=== PATIENT | female | born 1980 | race Caucasian/White ===

== ENCOUNTER → 2018-12-22 | Outpatient (CLI) | payer OTHER, MEDICAID, SELFPAY ==
[2018-07-21 16:08] VITALS: BMI 26.8
[2018-12-22 15:35] LABS: hCG Titer Quant., Serum 180 mIU/mL (1-3)
== END | disposition home or self-care (01) ==
PROVIDERS: Referring Provider Obstetrics & Gynecology; Visit Provider Obstetrics & Gynecology
DX: N91.2 Amenorrhea, unspecified (principal)
CPT/HCPCS: 36415; 84702

== ENCOUNTER → 2018-12-24 | Outpatient (CLI) | payer OTHER, MEDICAID, SELFPAY ==
[2018-07-21 16:08] VITALS: BMI 26.8
[2018-12-24 11:51] LABS: hCG Titer Quant., Serum 409 mIU/mL (1-3)
== END | disposition home or self-care (01) ==
LOC: LAB 11:03
PROVIDERS: Referring Provider Obstetrics & Gynecology; Visit Provider Obstetrics & Gynecology
DX: N91.2 Amenorrhea, unspecified (principal)
CPT/HCPCS: 36415; 84702

== ENCOUNTER → 2019-01-18 | Outpatient (CLI) | payer OTHER, SELFPAY ==
[2019-01-18 12:10] VITALS: BMI 26.8
[2019-01-18 13:39] LABS: Absolute Lymphocyte Count 1.77 X10^3/uL (0.83-4.51); Absolute Neutrophil Count 5.6 X10^3/uL (2.0-7.7); Basophil# 0.04 X10^3/uL; Basophil% 0.5 % (0-1); Eosinophil# 0.14 X10^3/uL; Eosinophils% 1.7 % (0-5); Hematocrit 37.5 % (37-47); Hemoglobin 12.6 g/dL (12.0-15.0); Lymphocyte # 1.77 X10^3/ul (4.0); Lymphocyte % 22.1 % (19-41); Mean Corp Hgb Conc 33.6 g/dL (32-36); Mean Corpuscular Hgb 30.3 pg (27.0-32.0); Mean Corpuscular Volume 90.1 fL (81-99); Mean Platelet Vol. 10.4 fl (6.2-12.0); Monocyte# 0.39 X10^3/uL; Monocyte% 4.9 % (0-10); NRBC Flagged by Analyzer 0 % (0-5); Neutrophil # 5.64 X10^3/uL (2.7-7.7); Neutrophil % 70.3 % (47-70); Platelet Count 212 K/mm3 (150-450); RBC Distribution Width CV 13.2 % (11.6-14.6); RBC Distribution Width SD 43.5 fl (35.1-43.9); Red Blood Count 4.16 M/mm3 (4.2-5.4)
[2019-01-18 14:00] LABS: Glucose Challenge Gest 1H 50g 162 mg/dL (70-140)
[2019-01-18 14:56] LABS: HIV - WCH Non-Reactive (Nonreactive); Rubella IgG > 500.0 IU/mL
[2019-01-18 20:16] LABS: Chlamydia Trachomatis by PCR Negative (Negative); Neisserai gonorrhoeae by PCR Negative (Negative); Probe Check PASS; Sample Adequacy Control PASS; Specimen Processing Control PASS
[2019-01-22 01:33] LABS: Rapid Plasmin Reagin (RPR) NONREACTIVE (NONREACTIVE)
[2019-01-26 14:00] LABS: HPV APTIMA, High Risk Positive (Negative)
== END | disposition home or self-care (01) ==
PROVIDERS: Referring Provider Nurse Practitioner Women's Health; Visit Provider Nurse Practitioner Women's Health
DX: O09.529 Supervision of elderly multigravida, unspecified trimester (principal); O09.299 Supervision of pregnancy with other poor reproductive or obstetric history, unspecified trimester; Z86.32 Personal history of gestational diabetes; Z12.4 Encounter for screening for malignant neoplasm of cervix; Z3A.00 Weeks of gestation of pregnancy not specified
CPT/HCPCS: 36415; 82950; 85025; 86592; 86703; 86762; 86850; 86900; 87086; 87491; 87591; 87624; 88175; G0145

== ENCOUNTER → 2019-02-03 | Outpatient (CLI) | payer OTHER, SELFPAY ==
[2019-01-18 12:10] VITALS: BMI 26.8
[2019-02-03 09:15] VITALS: BMI 28.1
[2019-02-03 11:28] LABS: Glucose GTT-Gestation. Fasting 83 mg/dL (<105)
[2019-02-03 12:00] LABS: Glucose GTT-Gestational 1 Hr 172 mg/dL (<190)
[2019-02-03 12:45] LABS: Glucose GTT-Gestational 2 Hr 117 mg/dL (<165)
[2019-02-03 14:08] LABS: Glucose GTT-Gestational 3 Hr 94 L (<145)
== END | disposition home or self-care (01) ==
PROVIDERS: Nurse Practitioner Women's Health; Referring Provider Obstetrics & Gynecology; Visit Provider Obstetrics & Gynecology
DX: Z34.81 Encounter for supervision of other normal pregnancy, first trimester (principal); O99.810 Abnormal glucose complicating pregnancy; Z3A.00 Weeks of gestation of pregnancy not specified
CPT/HCPCS: 36415; 82951; 82952

== ENCOUNTER → 2019-03-17 11:16 | Outpatient (CLI) | payer OTHER, SELFPAY ==
[2019-03-17 11:01] VITALS: BMI 29.0
== END ==
PROVIDERS: Referring Provider Nurse Practitioner Women's Health; Visit Provider Nurse Practitioner Women's Health
DX: Z36.9 Encounter for antenatal screening, unspecified (principal)
CPT/HCPCS: 36415

== ENCOUNTER → 2019-07-13 09:55 | Outpatient (CLI) | payer OTHER, SELFPAY ==
[2019-06-17 13:11] VITALS: BMI 29.0
[2019-07-06 11:01] VITALS: BMI 29.0
[2019-07-13 11:03] LABS: Glucose GTT-Gestation. Fasting 83 mg/dL (<105)
[2019-07-13 12:01] LABS: Absolute Lymphocyte Count 1.46 X10^3/uL (0.83-4.51); Basophil# 0.03 X10^3/uL; Basophil% 0.3 % (0-1); Eosinophil# 0.12 X10^3/uL; Eosinophils% 1.3 % (0-5); Hematocrit 34.9 % (37-47); Hemoglobin 11.5 g/dL (12.0-15.0); Lymphocyte # 1.46 X10^3/ul (4.0); Lymphocyte % 16.1 % (19-41); Mean Corpuscular Hgb 29.2 pg (27.0-32.0); Mean Corpuscular Volume 88.6 fL (81-99); Mean Platelet Vol. 10.7 fl (6.2-12.0); Monocyte# 0.48 X10^3/uL; Monocyte% 5.3 % (0-10); NRBC Flagged by Analyzer 0 % (0-5); Neutrophil # 6.95 X10^3/uL (2.7-7.7); Neutrophil % 76.6 % (47-70); Platelet Count 198 K/mm3 (150-450); RBC Distribution Width CV 13.3 % (11.6-14.6); RBC Distribution Width SD 43.3 fl (35.1-43.9); Red Blood Count 3.94 M/mm3 (4.2-5.4); White Blood Count 9.1 K/mm3 (4.4-11.0)
[2019-07-13 12:02] LABS: Glucose GTT-Gestational 1 Hr 170 mg/dL (<190)
[2019-07-13 13:39] LABS: Glucose GTT-Gestational 2 Hr 170 mg/dL (<165)
[2019-07-13 14:26] LABS: Glucose GTT-Gestational 3 Hr 123 L (<145)
== END ==
PROVIDERS: Referring Provider Obstetrics & Gynecology; Visit Provider Obstetrics & Gynecology
DX: O09.299 Supervision of pregnancy with other poor reproductive or obstetric history, unspecified trimester (principal); O09.529 Supervision of elderly multigravida, unspecified trimester; Z86.32 Personal history of gestational diabetes; Z3A.00 Weeks of gestation of pregnancy not specified
CPT/HCPCS: 36415; 82951; 82952; 85025

== ENCOUNTER → 2019-07-15 11:28 | Outpatient (CLI) | payer OTHER, SELFPAY ==
[2019-06-17 13:11] VITALS: BMI 29.0
[2019-07-15 10:45] VITALS: BMI 29.0
[2019-07-15 13:18] LABS: Hepatitis B Surface Antigen Non-Reactive (Nonreactive)
== END ==
PROVIDERS: Referring Provider Obstetrics & Gynecology; Visit Provider Obstetrics & Gynecology
DX: Z34.90 Encounter for supervision of normal pregnancy, unspecified, unspecified trimester (principal)
CPT/HCPCS: 36415; 87340

== ENCOUNTER → 2019-07-29 | Outpatient (CLI) | payer OTHER, SELFPAY ==
[2019-07-29 11:02] VITALS: BMI 29.0
== END | disposition home or self-care (01) ==
LOC: LABSPEC 15:56
PROVIDERS: Referring Provider Obstetrics & Gynecology; Visit Provider Obstetrics & Gynecology
DX: Z34.93 Encounter for supervision of normal pregnancy, unspecified, third trimester (principal); Z3A.36 36 weeks gestation of pregnancy
CPT/HCPCS: 87081

== ENCOUNTER 2019-08-19 06:15 | Inpatient (IN) | payer MEDICAID, SELFPAY ==
[2019-08-13 10:45] VITALS: BMI 29.0
[2019-08-19] VITALS (24 sets, daily range): BP systolic 90–115; BP diastolic 48–74; PULSE 77–92; RESP 12–20; TEMP 36.4–37.3; O2SAT 95–100; BMI 32.3
[2019-08-19] MEDS: Lactated Ringers 1,000 ML 999 ML IV (06:15)
[2019-08-19 06:34] LABS: Absolute Lymphocyte Count 1.85 X10^3/uL (0.83-4.51); Absolute Neutrophil Count 7.3 X10^3/uL (2.0-7.7); Basophil# 0.02 X10^3/uL; Basophil% 0.2 % (0-1); Eosinophil# 0.11 X10^3/uL; Eosinophils% 1.1 % (0-5); Hematocrit 36.5 % (37-47); Lymphocyte # 1.85 X10^3/ul (4.0); Lymphocyte % 18.5 % (19-41); Mean Corp Hgb Conc 32.9 g/dL (32-36); Mean Corpuscular Hgb 29.2 pg (27.0-32.0); Mean Corpuscular Volume 88.8 fL (81-99); Mean Platelet Vol. 10.8 fl (6.2-12.0); Monocyte# 0.65 X10^3/uL; Monocyte% 6.5 % (0-10); NRBC Flagged by Analyzer 0 % (0-5); Neutrophil # 7.32 X10^3/uL (2.7-7.7); Neutrophil % 73.2 % (47-70); Platelet Count 198 K/mm3 (150-450); RBC Distribution Width CV 13.1 % (11.6-14.6); RBC Distribution Width SD 42.5 fl (35.1-43.9); Red Blood Count 4.11 M/mm3 (4.2-5.4)
[2019-08-19] MEDS: Sodium Citrate/Citric Acid 30 ML UDC PO (06:56)
[2019-08-19] MEDS: Lactated Ringers 1,000 ML 150 ML IV (07:11)
[2019-08-19] MEDS: Cefazolin 2 GM in 0.9% Normal Saline 100 ML IV (07:11)
--- NOTE | 2019-08-19 07:26 | HP.PCM_ITS ---
- Problem List (1) ASCUS with positive high risk HPV cervical Status: Acute Comment: repeat pap PP (2) History of anxiety Status: Acute Comment: citalopram inc to 40mg 05/13/19 (3) History of gestational diabetes in prior , currently Status: Acute Comment: 1st trim GCT:abnormal and normal 3hr. (4) History of maternal fourth degree perineal laceration, currently Status: Acute Comment: Wants primary c section, BTO. Title 19 signed. C/S scheduled for 08/19/2019 (5) Status: Acute Qualifiers: Comment: Declines carrier. NIPT low risk. AFP normal Normal anatomy (6) Supervision of high-risk of elderly multigravida Status: Acute Comment: PRR ASHANTI 08/26/19 Girl PC:Pritesh Stoll:Loren(2 sons) History and Physical Date of Admission: 08/19/19 Intake Vital Signs 08/13/19 BMI 29.0 08/13/19 Height 5 ft 7 in 08/13/19 Weight: 208 lb 08/13/19 BMI 32.5 08/13/19 BP 118/88 H Intake Visit Reasons: 38 WK OB Chief Complaint: est ob Information Technology Specialist Required: No Is patient in pain?: No Allergies No Known Allergies Allergy (Verified 08/13/19 10:45) Medications multivitamin no.47-iron fum 27 mg-folate no.1 1 mg-dha 300 mg capsule cap PO cap 01/18/19 [History Confirmed 08/13/19] citalopram 40 mg tablet 40 mg PO DAILY #90 tab 05/13/19 [Rx Confirmed 08/13/19] Last Menstral Period: 11/19/18 PFS PFS Medical History ADD (attention deficit disorder) (Acute) Hypertension (Chronic) Social History (Updated 08/13/19 @ 10:59 by Trang Casanova MD) adopted: No household members: family housing: house number of children: 1 current occupational status: employed current occupation: [employer] pets and animals: No history of recent travel: No sexually active: Yes Smoking Status: Current every day smoker second hand exposure: No alcohol intake: never substance use type: does not use seatbelt use: always do you feel safe at home: Yes additional social history: Engaged: Loren 1 son, 2 step sons Pregancy History 2 Elective abortions Hx Para 1 Spontaneous abortions Hx # Term Pregnancies 1 Ectopic pregnancies Hx # Pregnancies Multiple births # of living children 1 Past Pregnancies Del. Date Name GA/Weeks Outcome Route Bth Weight Gen Labor Lgth Anesthesia Del Locatn Provider FOB 10/14/11 Pritesh 38 live - full term 7lbs 12oz Male 2 7hours epidural Delivery Date: 10/14/11 On 01/18/19 @ 11:17 Carrie Cristina GDM, placenta previa, 4th degree tear, blood loss HPI 38 WK OB: Details: LAMONT MORLEY is a 38 year old who presents for routine OB visit. OB Visit ASHANTI Calculator Estimated Delivery Date Method Current WG Current Estimate 08/26/19 LMP (Certain) 38w 1d Other Estimates 08/29/19 Ultrasound #1 37w 5d Expected Delivery Route/Plan LTCS and BTL Labor Preferences- labor support person: loren stoll pain management options preferred: spinal cut cord/dad catch: no : yes PP control planned: sterilization discussed possible routes of delivery and associated risks: yes and plan LTCS special requests: [] Specific Issue/Plans flu vaccine: given tdap vaccine: given rhogam: na LARC form signed: declined Problem list reviewed and updated with the most current plan of care details and appropriate orders placed. Relevant counseling for the gestational age provided. Continue routine care and follow up unless otherwise noted in visit notes/problem list details Initial Weight: Not Recorded Date EGA Weight BP Urine Prot Glucose FHR FuHt Pres Dilation Effaced St Visit Note 01/18/19 8w 4d 178 lb 130/70 160 02/17/19 12w 6d 180 lb 92/68 Negative Negative 160 no vb cramping 03/17/19 16w 6d 185 lb 116/70 Negative Negative 152 NO VB, LOF. Doing well 04/15/19 21w 0d 187 lb 104/68 Negative Negative 147 Good FM. NO VB, LOF 05/13/19 25w 0d 197 lb 2 oz 104/74 Negative Negative 148 25 Good FM. No VB, LOF. Wants PCS BTO, title 19 signed. 06/17/19 30w 0d 199 lb 100/70 Trace Negative 07/06/19 32w 5d 203 lb 110/78 Negative Negative 135 32 Good FM. No Vb, LOF. Some cough and congestion. No fever. 07/15/19 34w 0d 202 lb 128/76 125 34 SM- no vb lof good fm no regular ctx. 07/29/19 36w 0d 205 lb 138/82 Negative Negative 135 36 SM- no vb lof good fm no regualr ctx gbs 08/05/19 37w 0d 205 lb 120/84 135 37 SM- no vb lof good fm no regular ctx 08/13/19 38w 1d 208 lb 118/88 130 38 SM- no vb lof good fm no regular ctx Notes Visit Date: 08/13/19 ??No visit notes to display Visit Date: 08/05/19 ??No visit notes to display Visit Date: 07/29/19 ??No visit notes to display Visit Date: 07/15/19 ??No visit notes to display Visit Date: 07/06/19 ??No visit notes to display Visit Date: 06/17/19 ??No visit notes to display Visit Date: 05/13/19 ??Good FM. No VB, LOF. Wants PCS BTO, title 19 signed. ??Maranda Gold NP-C on 05/13/19 Visit Date: 04/15/19 ??Good FM. NO VB, LOF ??THIERRY ChowC on 04/15/19 Visit Date: 03/17/19 ??NO VB, LOF. Doing well ??THIERRY ChowC on 03/17/19 Visit Date: 02/17/19 ??no vb cramping ??Trang Casanova MD on 02/21/19 Visit Date: 01/18/19 ??No visit notes to display ACOG First Trimester First Trimester: Desire for , Alcohol, Tobacco Cessation, Illicit/Recreational Drug/Substance Use, Intimate Partner Violence, Barriers to care, Unstable Housing, Communication Barriers, Environmental/Work Hazards, Anticipated Course of Care, Toxoplasmosis Precations, Use of Any medications, Sexual activity, Exercise, Dental Care, Sauna/Hot tub use, Seat Belt use, Childbirth classes/Hospital facilities, , Travel, Indications for US and Screening for Aneuploidy Second Trimester Second Trimester: Signs and Symptoms of Labor, Selecting a care provider, Reproductive Life Planning, Care Planning, Tobacco Cessation, Depression/Anxiety and Intimate Partner Violence Third Trimester Third Trimester: Pain Management Plans, Labor support person(s), Immediate Larc, Movement Monitoring and Infant Feeding Yes ; discussed Trial of Labor after Counseling or discussed Circumcision preference Diagnostics Diagnostics Diagnostics Gest Glucose Tolerance MG/DL 07/13/19 Hgb 11.5 g/dL (12.0-15.0) L 07/13/19 Hct 34.9 % (37-47) L 07/13/19 Details: HIV: Urine Culture: Sequential Screen: NIPT Screen: ROS Const Reports system reviewed and no additional complaints, except as docu Card Reports system reviewed and no additional complaints, except as docu Resp Reports system reviewed and no additional complaints, except as docu GI Reports system reviewed and no additional complaints, except as docu, Reports nausea Reports system reviewed and no additional complaints, except as docu Musc Reports system reviewed and no additional complaints, except as docu Exam Const General: cooperative, healthy appearing, comfortable, anxious HENMT Head: normal to inspection Nose: external nose normal Face and sinus: normal facial exam Neck Neck: normal visual inspection, full ROM, no lymphadenopathy Thyroid: thyroid normal Chest Chest palpation & inspection: normal inspection of the chest Resp Effort & Inspection: normal respiratory effort GI Inspection: normal to inspection Palpation: soft, other (gravid uterus) Other: infant vertex and appropriate size for gestational age Other: Cervical Exam: Extrem General: pedal edema Assessment & Plan Problems 1. ASCUS with positive high risk HPV cervical R87.610; R87.810 repeat pap PP 2. History of anxiety Z86.59 citalopram inc to 40mg 05/13/19 3. History of maternal fourth degree perineal laceration, currently O09.299 Wants primary c section, BTO. Title 19 signed. C/S scheduled for 08/19/2019 4. History of gestational diabetes in prior , currently O09.299; Z86.32 1st trim GCT:abnormal and normal 3hr. 5. 38 weeks gestation of Z3A.38 Declines carrier. NIPT low risk. AFP normal Normal anatomy 6. Supervision of high-risk of elderly multigravida O09.529 PRR ASHANTI 08/26/19 Girl PC:Pritesh Stoll:Loren(2 sons) Plan plan RLTCS and BS for sterilization Orders Orders: POC Urinalysis 2 Dip (Clinic) Today Coding Level of Care Code OB Routine Diagnoses ASCUS with positive high risk HPV cervical R87.610; R87.810 History of anxiety Z86.59 History of maternal fourth degree perineal laceration, currently O09.299 History of gestational diabetes in prior , currently O09.299; Z86.32 38 weeks gestation of Z3A.38 ??Weeks of gestation: 38 weeks Supervision of high-risk of elderly multigravida O09.529
--- NOTE | 2019-08-19 07:47 | FALS_PTH ---
PATIENT: LAMONT MORLEY LOC: WP U#:[id number] AGE/SX: 38/F ROOM: WP008 RE08/19/[address]: Dr. Trang Casanova MD : 1980 BED: 1 DIS: 08/21/2019 SPEC #: [id number] RECD: 08/19/19 09:38 STATUS: BASILIO DAMARIS #: [id number] ANDRA: 08/19/19 07:[address]: Trang Casanova DEPT: SURGICAL PATHOLOGY RECD BY: Dre Maravilla ENTERED: 08/19/19 10:16 SP TYPE: FALL TUBES OTHR DR: YANG Leal Tissues: Fallopian tube Procedures: Surgery Specimen Level II HEADER OPERATION: Tubal ligation PRE-OP DIAGNOSIS: Sterilization TISSUE SUBMITTED: Fallopian tubes MICROSCOPIC DIAGNOSIS Bilateral fallopian tubes, salpingectomy: Bilateral fallopian tubes including fimbrial ends, no pathologic diagnosis. GERRI:barbara 08/20/19 MICROSCOPIC DESCRIPTION Slides are reviewed. GROSS DESCRIPTION Received is one container labeled with the patient's name and designated bilateral fallopian tubes. The specimen consists of bilateral fallopian tubes including fimbrial ends measuring 6 cm in length and up to 0.8 cm in diameter. Sections do not reveal any mass lesion. The fallopian tubes are not identified as right or left. Sections reveal unremarkable cut surfaces. Tangled Yarn Spool Straightener sections are submitted in two cassettes with each cassette containing one fallopian tube. / GERRI:barbara 08/19/19 TC:4 CPT: 08887 x2
[2019-08-19] MEDS: Oxytocin 30 units/NS 500 ml 30 UNITS/500 ML IV.SOLN 167 UNITS IV (08:30)
[2019-08-19 09:35] LABS: Pathology Specimen OB SEE PATHOLOGY REPORT
[2019-08-19] MEDS: Acetaminophen 500 MG Tablet 1000 MG PO ×2 (09:52→17:33)
--- NOTE | 2019-08-19 11:49 | NURSING ---
Indwelling urinary catheter present. WNL.
[2019-08-19] MEDS: 0.9% Saline Lock 10 ML Syringe IV ×6 (11:57→23:31)
[2019-08-19] MEDS: Ketorolac 30 MG/ML Syringe IV ×3 (11:57→23:27)
--- NOTE | 2019-08-19 12:15 | NURSING ---
Patient attempted to sit up on the edge of the bed. Patient sat on the edge of the bed for less than a minute, but patient reported being too painful. Patient has an ice pack and has been given medication. Will continue to monitor pain level.
[2019-08-19] MEDS: Lactated Ringers 1,000 ML 100 ML IV (12:21)
--- NOTE | 2019-08-19 14:06 | NURSING ---
Multiple interventions to alleviate pain. Abdominal assessment negative. Charge nurse to bedside and assessment agrees with this RN. Will cont. to monitor. Pericare given and assisted up to chair. Gait steady with assist. No guarding with assessment or ambulation.
--- NOTE | 2019-08-19 18:46 | NURSING ---
Spectra pump approved by insurance and given to mother. Pump parts and functions were explained to parents. Encouraged follow up with outpatient or through Telehealth if needed
[2019-08-19] MEDS: Enoxaparin 40 MG/0.4 ML Syringe SC (20:09)
[2019-08-20] VITALS (8 sets, daily range): BP systolic 100–106; BP diastolic 57–72; PULSE 76–88; RESP 16–20; TEMP 36.8–37.3; O2SAT 95–100
[2019-08-20] MEDS: 0.9% Saline Lock 10 ML Syringe IV ×6 (00:20→20:03)
--- NOTE | 2019-08-20 03:29 | OP.PCM_ITS ---
Problem List (1) ASCUS with positive high risk HPV cervical Status: Acute Comment: repeat pap PP (2) History of anxiety Status: Acute Comment: citalopram inc to 40mg 05/13/19 (3) History of gestational diabetes in prior , currently Status: Acute Comment: 1st trim GCT:abnormal and normal 3hr. (4) History of maternal fourth degree perineal laceration, currently Status: Acute Comment: Wants primary c section, BTO. Title 19 signed. C/S scheduled for 08/19/2019 (5) Status: Acute Qualifiers: Comment: Declines carrier. NIPT low risk. AFP normal Normal anatomy (6) Supervision of high-risk of elderly multigravida Status: Acute Comment: PRR ASHANTI 08/26/19 Girl PC:Pritesh Stoll:Britt(2 sons) Delivery Classification: Scheduled Final ASHANTI: 08/26/19 Gestational age: 39 Weeks and 1 Days mining detail draftsperson: Neda Vides Type of Anesthesia:: Spinal Date of Procedure: 08/20/19 Pre-Operative Diagnosis: history of fourth degree laceration Post-Operative Diagnosis: same Description of Procedure: The patient has a history of a fourth degree laceration and after discussion has planned a primary . Spinal anesthesia was placed without difficulty. Chong catheter was placed. The patient was placed in the dorsal supine position with leftward tilt. Patient was prepped and draped in the normal sterile fashion. Pfannenstiel skin incision was made with the scalpel and carried through to the underlying layer of fascia with the scalpel. Fascia was nicked in the midline and the incision extended laterally. The rectus bellies were dissected off superiorly and inferiorly with out complication both sharply and bluntly. The peritoneum was entered digitally. The incision was stretched and a low transverse uterine incision was made with the scalpel. The 's head was delivered atraumatically followed by the anterior and posterior shoulders without complication the rest of the delivered. The cord was clamped and cut and the was handed off to awaiting nurse. The placenta was delivered spontaneously immediately following and was noted to be intact and have a three- vessel cord. The uterus was exteriorized cleared of all clots and debris, and the incision was closed in a single layer closure using #1 Monocryl. Patient had desired sterilization and had been consented prior to permanency and therefore bilateral fallopian tubes were elevated and transected across using a LigaSure device starting proximally to distally without complication the entire fallopian tube was removed. The ovaries and fallopian tubes were noted to be within normal limits. The uterus was returned to the maternal abdomen and gutt ers were cleared of all clots and debris. The peritoneum was closed with 3-0 Monocryl in a running fashion. Gloves were changed prior to fascial closure. Fascia was closed with 0 PDS in a running fashion. Subcutaneous tissue was copiously irrigated and the skin was closed with 3-0 Monocryl in a subcuticular fashion. Mepilex dressing was applied without complication. Patient was taken to recovery in stable condition. It was discussed with the patient that based on the clinical information obtained during this encounter, combined with her history, at this time I would recommend for future deliveries if further pregnancies are desired. Amniotic Fluid Description: Clear Placenta Disposition: [facility] Drain: Chong to straight drain Fluids Replaced: crystalloid Cord Entanglement: None Cord Vessel Description: 3 Vessels Esitmated Blood Loss (ml): 700 Infant Gender: Female Delayed cord clamping: Yes Antibiotic Given: Ancef 2 grams IV x1 Pt instructed on risks of surgery: Bleeding, Anesthesia Risks, Infection, Failure Rate of 1 to 2% Complications: None - Admit VTE Documentation VTE Present on Admission: No VTE Mechan Device Prophylaxis: SCD's Multi Select Codes - Urinary/Genital Urinary/Genital CPT Codes: 45134 PPTL - bilateral salpingectomy- is this a different code than 10383?, 42353 Delivery [facility]
--- NOTE | 2019-08-20 03:58 | PCM.HPOB.BLA ---
- Problem List (1) ASCUS with positive high risk HPV cervical Status: Acute Comment: repeat pap PP (2) History of anxiety Status: Acute Comment: citalopram inc to 40mg 05/13/19 (3) History of gestational diabetes in prior , currently Status: Acute Comment: 1st trim GCT:abnormal and normal 3hr. (4) History of maternal fourth degree perineal laceration, currently Status: Acute Comment: Wants primary c section, BTO. Title 19 signed. C/S scheduled for 08/19/2019 (5) Status: Acute Qualifiers: Comment: Declines carrier. NIPT low risk. AFP normal Normal anatomy (6) Supervision of high-risk of elderly multigravida Status: Acute Comment: PRR ASHANTI 08/26/19 Girl PC:Pritesh Stoll:Britt(2 sons)
[2019-08-20] MEDS: Senna/Docusate Sodium 1 Tablet PO (04:33)
[2019-08-20] MEDS: Acetaminophen 500 MG Tablet 1000 MG PO (04:33)
[2019-08-20 04:41] LABS: Hematocrit 27.5 % (37-47); Hemoglobin 8.8 g/dL (12.0-15.0); Mean Corpuscular Hgb 28.9 pg (27.0-32.0); Mean Corpuscular Volume 90.5 fL (81-99); Mean Platelet Vol. 10.6 fl (6.2-12.0); Platelet Count 151 K/mm3 (150-450); RBC Distribution Width CV 13.3 % (11.6-14.6); RBC Distribution Width SD 43.7 fl (35.1-43.9); Red Blood Count 3.04 M/mm3 (4.2-5.4); White Blood Count 8.9 K/mm3 (4.4-11.0)
--- NOTE | 2019-08-20 04:59 | PN.OBGYN_ITS ---
Subjective: doing well no complaints pain controlled no CP SOB N V ambulating well tolerating po lochia moderate, going well - Physical Exam Vitals/I&O's: Vital Signs Temp Pulse Resp BP Pulse Ox 98.9 F 81 16 100/57 L 98 08/20/19 04:10 08/20/19 04:10 08/20/19 04:10 08/20/19 04:10 08/20/19 04:10 Oxygen Delivery Method Room Air Weight: 206 lb 12.697 oz Body Mass Index (BMI) 32.3 Intake and Output for Last 24 Hours 08/18/19 08/19/19 08/20/19 23:59 23:59 23:59 Intake Total 2799.88 / 2799.88 480 / 480 Output Total 1800 / 1800 400 / 400 Balance 999.88 / 999.88 80 / 80 General: Alert, Oriented x3 Laboratory Results 08/19/19 06:15: WBC 10.0, RBC 4.11 L, Hgb 12.0, Hct 36.5 L, MCV 88.8, MCH 29.2, MCHC 32.9, RDW Std Deviation 42.5, RDW Coeff of Erlinda 13.1, Plt Count 198, MPV 10.8, Immature Gran % (Auto) 0.500, Neut % (Auto) 73.2 H, Lymph % (Auto) 18.5 L, [place] % (Auto) 6.5, Eos % (Auto) 1.1, Baso % (Auto) 0.2, Absolute Neuts (auto) 7.3, Absolute Lymphs (auto) 1.85, Nucleated RBC % 0 08/19/19 06:15: Blood Type A POSITIVE, Antibody Screen NEGATIVE 08/20/19 04:15: WBC 8.9, RBC 3.04 L, Hgb 8.8 L, Hct 27.5 L, MCV 90.5, MCH 28.9, MCHC 32.0, RDW Std Deviation 43.7, RDW Coeff of Erlinda 13.3, Plt Count 151, MPV 10 .6 Current Medications Acetaminophen (Tylenol) 1,000 mg PO Q8H PRN PRN Reason: Pain Score 1-3/10 Last Admin: 08/20/19 04:33 Dose: 1,000 mg Documented by: Bisacodyl (Dulcolax) 10 mg RECTAL UD PRN PRN Reason: If no BM Citalopram Hydrobromide (Celexa) 40 mg PO DAILY [facility] Diphenhydramine HCl (Benadryl) 25 mg PO Q6H PRN PRN PRN Reason: ITCHING Stop: 08/20/19 08:48 Enoxaparin Sodium (Lovenox) 40 mg SC DAILY@1900 MILVIA Last Admin: 08/19/19 20:09 Dose: 40 mg Documented by: Hydrocortisone (Hytone) 1 applic TOPICAL TID PRN PRN; Protocol PRN Reason: Discomfort Naloxone HCl 4 mg/ Dextrose 504 mls @ 0 mls/hr IV .Q0M PRN; Protocol PRN Reason: Respiratory depression Ketorolac Tromethamine (Toradol (Bkc)) 30 mg IV Q6H [facility] Stop: 08/21/19 06:01 Last Admin: 08/19/19 23:27 Dose: 30 mg Documented by: Meperidine HCl (Demerol) 25 mg IV Q2H PRN PRN PRN Reason: Pain Score 4-10/10 Stop: 08/20/19 07:00 Last Admin: 08/20/19 00:20 Dose: 25 mg Documented by: Methylergonovine Maleate (Methergine) 0.2 mg IM X1 PRN PRN Reason: Uterine Atony Naloxone HCl (Narcan) 0.02 mg IV Q1M PRN PRN Reason: RR <10 and pt unresponsive Naproxen (Naprosyn) 250 - 500 mg PO Q8H PRN PRN PRN Reason: Pain Score 1-3/10 Ondansetron HCl (Zofran) 4 mg IV Q4H PRN PRN PRN Reason: Nausea Oxycodone HCl (Oxyir) 5 - 10 mg PO Q4H PRN PRN PRN Reason: Pain Score 4-10/10 Prochlorperazine Edisylate (Compazine Iv) 10 mg IV Q6H PRN PRN PRN Reason: NAUSEA Senna/Docusate Sodium (Senokot-S, May-Colace) 0 tablet PO DAILY PRN PRN Reason: Constipation Last Admin: 08/20/19 04:33 Dose: 1 tablet Documented by: Simethicone (Mylicon) 80 mg PO PCHS PRN PRN Reason: Indigestion/stomach pain Sodium Chloride () 5 - 15 ml IV UD PRN PRN Reason: SALINE FLUSH Last Admin: 08/20/19 00:23 Dose: 10 ml Documented by: Medical Necessity - Tobacco Use Smoking Status: Former smoker Assessment/Plan All Active Problems (Last Reviewed 08/13/19 @ 10:45 by Kelsie Salvador) ASCUS with positive high risk HPV cervical (Acute) History of anxiety (Acute) History of maternal fourth degree perineal laceration, currently (Acute) History of gestational diabetes in prior , currently (Acute) (Acute) Supervision of high-risk of elderly multigravida (Acute) s/p LTCS PPD # 1 1. routine post care 2. breast feeding- support given 3. rh positive 4. rubella immune
--- NOTE | 2019-08-20 05:00 | DCINST_ITS ---
Discharge Diet: No Restrictions Discharge Activity: May Not Drive - for 2 weeks, May not drive while taking narcotic pain medications., May Shower, May Take a Tub Bath - in 7 days May resume sexual activity in: 4-6 weeks Lifting Restrictions: 20 pounds Additional Activity Instructions:: Nothing in the vagina for 4-6 weeks. You may return to work/school in 6 weeks. Call your doctor if your incision/area has: Continuous Slow Oozing, Sudden Increased Bleeding, Increased Pain/ Swelling, Increased Redness, Foul Smelling Discharge Call your doctor if you observe: Fever of 101 or Higher, Using more than one pad per hour - for 2 hours Suture Line Care: Avoid Pulling/Pushing, Avoid Pinching/Bending Cleanse incision/area with: Keep Dressing Clean & Dry Additional Instructions: If you experience any of the following, contact your healthcare provider. * Bleeding that soaks a pad every hour for 2 hours * Fever 100.4 or higher * Unrelieved incision or abdominal pain * Swelling, redness, discharge or bleeding from your incision or episiotomy site * Your incision begins to separate * Problems urinating (including inability to urinate or burning while urinating). * Visual changes * Severe headache * Flu-like symptoms * Pain or redness in one of both of your breasts * Pain, warmth, tenderness or swelling in your legs, especially the calf area * Frequent nausea and vomiting * Symptoms of depression or anxiety If you experience any of the following, call 911 or go to the nearest Emergency Room. * Chest pain * Problems breathing * Seizure activity * Partial or complete paralysis of a body part, slurred speech, weakness or drooping of the face, or a sudden inability to walk or hold your balance Allergies/Adverse Reactions: Allergies No Known Allergies Allergy (Verified 08/19/19 06:19) Medications to take at Discharge Citalopram Hydrobromide [Citalopram HBr] 40 mg PO DAILY 08/19/19 Naproxen [Naprosyn] 250 - 500 mg PO Q8H PRN PRN #30 tab 08/20/19 Oxycodone HCl/Acetaminophen [Percocet 5-325] 1 - 2 tab PO Q6H PRN PRN 7 Days #15 tab 08/20/19 The following prescriptions were given: Naproxen [Naprosyn] 250 - 500 mg PO Q8H PRN PRN #30 tab PRN Reason: MILD PAIN Transmission Status: Received by [facility] Oxycodone HCl/Acetaminophen [Percocet 5-325] 1 - 2 tab PO Q6H PRN PRN 7 Days #15 tab PRN Reason: Pain Transmission Status: Received by [facility] Follow-Up: Call to make an appointment with your doctor for an incision check in 1-2 weeks. You will also need a 6 week post- follow up appointment. Test results from this visit will be discussed in further detail at your follow- up appointment, if applicable. Please Follow Up With: Trang Casanova MD - Call to make an appointment for an incision check in 1-2 [phone] When: You will need a post- check in 6 weeks. Primary Care Physician: Meredith Jarvis NP-C [Primary Care Provider] -
[2019-08-20] MEDS: Ketorolac 30 MG/ML Syringe IV ×3 (06:03→20:02)
[2019-08-20] MEDS: oxyCODONE 5 MG Tablet PO ×4 (07:14→22:35)
[2019-08-20] MEDS: Citalopram 40 MG TABLET PO (11:21)
[2019-08-20] MEDS: Enoxaparin 40 MG/0.4 ML Syringe SC (20:13)
[2019-08-21] MEDS: Acetaminophen 500 MG Tablet 1000 MG PO (00:56)
[2019-08-21] MEDS: Ketorolac 30 MG/ML Syringe IV ×2 (01:54→07:57)
[2019-08-21] MEDS: 0.9% Saline Lock 10 ML Syringe IV ×2 (01:55→07:57)
[2019-08-21 02:04] VITALS: BP 104/62; PULSE 80; RESP 16; TEMP 36.6
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
[2019-08-21] MEDS: Senna/Docusate Sodium 1 Tablet PO (07:58)
[2019-08-21 08:05] VITALS: BP 102/62; PULSE 67; RESP 16; TEMP 36.6
[2019-08-21] MEDS: Citalopram 40 MG TABLET PO (09:59)
[2019-08-21] MEDS: oxyCODONE 5 MG Tablet PO (10:02)
[2019-08-21 14:25] VITALS: BP 113/84; PULSE 75; RESP 14; TEMP 36.7
== END 2019-08-21 17:20 | disposition home or self-care (01) | DRG 539 ==
PROVIDERS: Admitting Provider Obstetrics & Gynecology; Referring Provider Obstetrics & Gynecology; Visit Provider Obstetrics & Gynecology
PROC: 10D00Z1 Extraction of Products of Conception, Low, Open Approach (ICD-10-PCS; CPT 59514; principal; 2019-08-19 07:15)
DX: O75.89 Other specified complications of labor and delivery (principal); Z3A.39 39 weeks gestation of pregnancy; Z30.2 Encounter for sterilization; Z37.0 Single live birth; R87.610 Atypical squamous cells of undetermined significance on cytologic smear of cervix (ASC-US); O98.52 Other viral diseases complicating childbirth; O99.344 Other mental disorders complicating childbirth; F41.9 Anxiety disorder, unspecified
CPT/HCPCS: 85025; 85027; 86850; 86900; 86901; 88302; 99218; J7120; A4216; G0378; J2405